=== PATIENT | female | born 1995 | race Caucasian/White ===

== ENCOUNTER 2020-11-25 07:17 | Emergency (ER) | payer OTHER ==
[~2020-11-25] VITALS: Ht 167.6 cm; Wt 91.2 kg
[2020-11-25 07:18] VITALS: BP 139/83
[2020-11-25] MEDS ORDERED: FLUORESCEIN OPHTH 1 MG STRIP OD ONE (08:20)
[2020-11-25] MEDS ORDERED: TETRACAINE 0.5% OPHTH SOLN 4ML OD ONE (08:20)
[2020-11-25] MEDS ORDERED: POLYSOL OD (08:53)
== END 2020-11-25 09:41 | disposition home or self-care (01) ==
LOC: M ED 07:17
DX: H10.31 Unspecified acute conjunctivitis, right eye (principal)

== ENCOUNTER 2021-01-21 13:43 | Emergency (ER) | payer OTHER ==
[~2021-01-21] VITALS: Ht 167.6 cm; Wt 81.8 kg
[~2021-01-21 13:43] MED LIST: POLYSOL OD
[2021-01-21 17:35] VITALS: BP 126/78
== END 2021-01-21 17:40 | disposition home or self-care (01) ==
LOC: M ED 13:43
DX: S00.93XA Contusion of unspecified part of head, initial encounter (principal); M54.2 Cervicalgia; R51.9 Headache, unspecified; Y04.8XXA Assault by other bodily force, initial encounter; Y92.230 Patient room in hospital as the place of occurrence of the external cause; Y93.9 Activity, unspecified; Y99.0 Civilian activity done for income or pay

== ENCOUNTER → 2021-04-15 | Outpatient (REF) | LOC: M LABSMTC 09:07 | PROVIDERS: ATTEND Family Medicine | DX: Z20.828 Contact with and (suspected) exposure to other viral communicable diseases (principal); Z11.59 Encounter for screening for other viral diseases ==

== ENCOUNTER 2023-01-15 19:36 | Emergency (ER) | payer OTHER ==
[~2023-01-15] VITALS: Ht 167.6 cm; Wt 97.5 kg
[2023-01-15 19:36] VITALS: BP 147/79
[2023-01-15 21:26] LABS: BASO % 0.3 % (0.0-1.0); EOS # 0.1 10^3/uL (0.0-0.5); EOS % 0.8 % (0.0-3.0); HEMATOCRIT 35.5 % (36.0-47.0); HEMOGLOBIN 11.1 g/dl (12.0-15.5); LYMPH # 2.2 10^3/uL (1.5-5.0); LYMPH % 24.4 % (24.0-44.0); MEAN CORPUSCULAR HEMOGLOBIN 23.7 pg (27.0-33.0); MEAN CORPUSCULAR HGB CONC 31.3 g/dl (32.0-36.5); MEAN CORPUSCULAR VOLUME 75.7 fl (80.0-96.0); MONO # 0.7 10^3/uL (0.0-0.8); NEUTROPHILS % 66.3 % (36.0-66.0); PLATELET COUNT, AUTOMATED 267 10^3/uL (150-450); RED BLOOD COUNT 4.69 10^6/uL (4.00-5.40)
[2023-01-15 22:01] LABS: BLOOD UREA NITROGEN 13 MG/DL (9-23); CALCIUM LEVEL 9.2 MG/DL (8.5-10.1); CARBON DIOXIDE LEVEL 27 MMOL/L (20-31); CHLORIDE LEVEL 104 MMOL/L (98-107); GLOMERULAR FILTRATION RATE > 60.0 (>60); GLUCOSE, FASTING 112 MG/DL (60-100); POTASSIUM SERUM 3.6 MMOL/L (3.5-5.1); SODIUM LEVEL 138 MMOL/L (136-145)
[2023-01-15 22:15] LABS: HCG, SERUM QUANTITATIVE 4894.6 MIU/ML (<4.2)
== END 2023-01-15 23:47 | disposition left against medical advice (07) ==
LOC: M ED 19:36
DX: Z53.21 Procedure and treatment not carried out due to patient leaving prior to being seen by health care provider (principal)

== ENCOUNTER → 2023-01-18 | Outpatient (CLI) | payer OTHER | LOC: M PLALAB 15:39 | PROVIDERS: ATTEND Advanced Practice Midwife | DX: O03.9 Complete or unspecified spontaneous abortion without complication (principal) ==

== ENCOUNTER → 2023-02-03 | Outpatient (CLI) | payer OTHER | LOC: M PLALAB 13:13 | PROVIDERS: ATTEND Advanced Practice Midwife | DX: O03.9 Complete or unspecified spontaneous abortion without complication (principal) ==

== ENCOUNTER 2023-05-30 17:48 | Emergency (ER) | payer OTHER ==
[~2023-05-30] VITALS: Ht 170.2 cm; Wt 93.2 kg
[2023-05-30 19:22] LABS: BASO % 0.2 % (0.0-1.0); EOS % 0.4 % (0.0-3.0); HEMATOCRIT 38.7 % (36.0-47.0); HEMOGLOBIN 11.9 g/dl (12.0-15.5); LYMPH # 2.1 10^3/uL (1.5-5.0); MEAN CORPUSCULAR HEMOGLOBIN 23.5 pg (27.0-33.0); MEAN CORPUSCULAR HGB CONC 30.7 g/dl (32.0-36.5); MEAN CORPUSCULAR VOLUME 76.3 fl (80.0-96.0); MONO # 0.7 10^3/uL (0.0-0.8); NEUTROPHILS # 7.6 10^3/uL (1.5-8.5); NEUTROPHILS % 71.9 % (36.0-66.0); PLATELET COUNT, AUTOMATED 264 10^3/uL (150-450); RED BLOOD COUNT 5.07 10^6/uL (4.00-5.40); WHITE BLOOD COUNT 10.6 10^3/uL (4.0-10.0)
[2023-05-30 19:32] LABS: LIPASE 29 U/L (12-53)
[2023-05-30 19:34] LABS: ALBUMIN 4.3 G/DL (3.2-5.2); ALKALINE PHOSPHATASE 57 U/L (46-116); ALT/SGPT 20 U/L (7.0-40); AST/SGOT 19 U/L (<34); BILIRUBIN,DIRECT < 0.1 MG/DL (<0.4); BILIRUBIN,TOTAL 0.3 MG/DL (0.3-1.2); BLOOD UREA NITROGEN 14 MG/DL (9-23); CALCIUM LEVEL 9.3 MG/DL (8.5-10.1); CARBON DIOXIDE LEVEL 23 MMOL/L (20-31); CHLORIDE LEVEL 106 MMOL/L (98-107); CREATININE FOR GFR 0.78 MG/DL (0.55-1.30); GLOMERULAR FILTRATION RATE > 60.0 (>60); GLUCOSE, FASTING 100 MG/DL (60-100); HCG, SERUM QUANTITATIVE 240.8 MIU/ML (<4.2); POTASSIUM SERUM 3.8 MMOL/L (3.5-5.1); SODIUM LEVEL 137 MMOL/L (136-145); TOTAL PROTEIN 7.6 G/DL (5.7-8.2)
[2023-05-30 20:00] VITALS: BP 140/72
[2023-05-30 20:11] VITALS: TEMP 98.2; O2SAT 99
== END 2023-05-30 20:36 | disposition home or self-care (01) ==
LOC: M ED 17:48 → EDBD 17:48 → M ED 20:36
DX: O20.0 Threatened abortion (principal); I49.1 Atrial premature depolarization; V49.40XA Driver injured in collision with unspecified motor vehicles in traffic accident, initial encounter; Y92.410 Unspecified street and highway as the place of occurrence of the external cause; Y93.9 Activity, unspecified; Y99.9 Unspecified external cause status; Z3A.00 Weeks of gestation of pregnancy not specified

== ENCOUNTER 2025-04-03 06:11 | Day surgery (SDC) | payer OTHER ==
[~2025-04-03] VITALS: Ht 170.2 cm; Wt 102.1 kg
[~2025-04-03 06:11] MED LIST changes: +DEBL1TAB PO; +MULTTAB61 PO
[2025-04-03] MEDS ORDERED: ROCURONIUM BROMIDE 50MG/5ML VIAL As Ordered ONE (06:53)
[2025-04-03] MEDS ORDERED: LIDOCAINE 2% 100 MG/5 ML SDV (FOR ANES.) As Ordered ONE (06:53)
[2025-04-03] MEDS ORDERED: dexmedeTOMIDine (4 MCG/ML) 200 MCG/50 ML BTL As Ordered ONE (06:53)
[2025-04-03] MEDS ORDERED: SUGAMMADEX SODIUM 500 MG/5 ML VIAL As Ordered ONE (06:53)
[2025-04-03] MEDS ORDERED: ONDANSETRON 4MG 2ML VIAL As Ordered ONE (06:53)
[2025-04-03] MEDS ORDERED: dexAMETHasone 4 MG/ML 1 ML VIAL As Ordered ONE (06:53)
[2025-04-03] MEDS ORDERED: MIDAZOLAM INJ 2 MG/2 ML VIAL As Ordered ONE (07:00)
[2025-04-03] MEDS ORDERED: LIDOCAINE 1% SDV 5 ML VIAL SC PRN (07:05)
[2025-04-03] MEDS: LR 1,000 ML IV SCH (07:15)
[2025-04-03] MEDS: EPINEPHrine 1 MG/ML INJ 30 ML MD-VIAL As Ordered ONE (07:24)
[2025-04-03] MEDS ORDERED: ACETAMINOPHEN 1000MG/100ML IV BAG As Ordered ONE (08:04)
[2025-04-03] MEDS ORDERED: LABETALOL 100 MG/20 ML VIAL As Ordered ONE (08:31)
[2025-04-03] MEDS: METHYLENE BLUE 0.5% (5 MG/ML) 10 ML AMP As Ordered ONE (08:38)
[2025-04-03] MEDS: SODIUM CHLORIDE 0.9% NASAL GEL 15GM (AYR) As Ordered ONE (08:55)
[2025-04-03] MEDS: LIDOCAINE W/EPINEPHrine 1% 20 ML VIAL As Ordered ONE (08:58)
[2025-04-03] MEDS ORDERED: LR 1,000 ML IV SCH (09:05)
[2025-04-03] MEDS ORDERED: ONDANSETRON 4MG 2ML VIAL IV PRN (09:05)
[2025-04-03] MEDS: ONDANSETRON 4MG 2ML VIAL IV STA (09:25)
[2025-04-03] MEDS: HYDROMORPHONE HCL 0.5 MG/0.5 ML SYRINGE IV PRN (09:41)
[2025-04-03 10:29] VITALS: BP 137/79; TEMP 97.9; O2SAT 97
== END 2025-04-03 10:46 | disposition home or self-care (01) ==
LOC: M SDC 06:11
PROVIDERS: ATTEND Otolaryngology
DX: J34.2 Deviated nasal septum (principal); J34.3 Hypertrophy of nasal turbinates; R09.81 Nasal congestion
CPT/HCPCS: 30520; 30802; 81025; 88300; J0131; J0169; J1100; J1171; J1920; J2250; J2405; J2765; J3010; Q9968